=== PATIENT | female | born 1940 | race Caucasian/White ===

== ENCOUNTER 2017-12-28 09:33 | Outpatient (CLI) | payer MEDICARE, OTHER | END 2017-12-28 09:34 | disposition home or self-care (01) | LOC: BICMAMMO 09:33 | PROVIDERS: ATTEND Internal Medicine Hematology & Oncology | DX: C50.412 Malignant neoplasm of upper-outer quadrant of left female breast (principal); D50.9 Iron deficiency anemia, unspecified; N18.2 Chronic kidney disease, stage 2 (mild); N64.89 Other specified disorders of breast | CPT/HCPCS: 19100; 76642; 76942; 77065; 88305; 88341; 88342; G0279; 88361; 88377 ==

== ENCOUNTER 2018-01-23 11:46 | Outpatient (CLI) | payer MEDICARE, OTHER ==
[2018-01-23 13:23] LABS: #Eosinphils 0.1 thou/uL (0.0-0.7); #Lymphocytes 1.6 thou/uL (1.20-3.40); #Monocytes 0.5 thou/uL (0.11-0.59); #Neutrophils 3.9 thou/uL (1.40-6.50); %Basophils 0.2 % (0.0-1.0); %Eosinophils 1.2 % (0.0-10.0); %Lymphocytes 26.8 % (21.0-51.0); %Neutrophils 63.9 % (42.0-75.0); Hemoglobin 13.4 g/dL (12.0-16.0); Mean Corpuscular HGB CONC 34.3 g/dL (32.0-36.0); Mean Corpuscular Hemoglobin 31.2 pg (27.0-31.0); Mean Corpuscular Volume 90.9 fL (78.0-98.0); Mean Platelet Volume 6.6 fL (7.4-10.4); Platelet Count 196 thou/uL (130-400); RBC Distribution Width 14.4 % (11.5-14.5); Red Blood Cell (RBC) Count 4.28 mill/uL (4.20-5.40)
[2018-01-23 13:38] LABS: Anion Gap 11 mmol/L (10-20); BUN (Urea Nitrogen) 13 mg/dL (9.8-20.1); Calc. Creatinine Clearance 0 mL/min (70-130); Calcium 9.5 mg/dL (7.8-10.44); Carbon Dioxide 27 mmol/L (23-31); Chloride 103 mmol/L (98-107); Estimated GFR-MDRD 69; Glucose 100 mg/dL (83-110); Potassium 3.9 mmol/L (3.5-5.1); Sodium 137 mmol/L (136-145)
--- NOTE | 2018-01-24 15:22 | EKG ---
Test Reason : Blood Pressure : / mmHG Vent. Rate : 064 BPM Atrial Rate : 064 BPM P-R Int : 220 ms QRS Dur : 076 ms QT Int : 398 ms P-R-T Axes : 063 -29 012 degrees QTc Int : 410 ms Sinus rhythm with 1st degree A-V block Low voltage QRS Cannot rule out Septal infarct , age undetermined Abnormal ECG Confirmed by ROLANDO CHARLES ([id number]) on 01/24/2018 3:21:56 PM Referred By: REJI Confirmed By:ROLANDO CHARLES
== END 2018-01-23 11:47 | disposition home or self-care (01) ==
LOC: LABBT 11:46
PROVIDERS: ATTEND Surgery
DX: Z01.818 Encounter for other preprocedural examination (principal); C50.912 Malignant neoplasm of unspecified site of left female breast
CPT/HCPCS: 80048; 82728; 85025; 93005; 93010

== ENCOUNTER 2018-01-30 08:59 | Observation (INO) | payer MEDICARE, OTHER ==
[2018-01-23 12:26] VITALS: BMI 29.3
--- NOTE | 2018-01-30 11:08 | NM ---
LYMPHOSCINTIGRAPHY: INDICATIONS: Malignant neoplasm, left breast. Preoperative lymphoscintigraphy performed to assess sentinel lymph nodes. TECHNIQUE: Technetium sulfur colloid 0.1 millicuries was injected subcutaneously in the periareolar region, at t he 12, 3, 6, and 9 o'clock positions. Imaging obtained at approximately 15 minutes. FINDINGS: The images shows a lymph node visualized in the upper left breast, at the 12 to 1 position, on the AP view. POS: [facility]
[2018-01-30] MEDS ORDERED: Fentanyl 100 MCG/2 ML VIAL ONE ×2 (12:24→14:48)
[2018-01-30] MEDS ORDERED: CEFAZOLIN/Water 2 GM/20 ML SYRINGE ONE (12:26)
[2018-01-30] MEDS ORDERED: Ketorolac Tromethamine 30 MG/ML VIAL ONE (12:47)
[2018-01-30] MEDS ORDERED: PROPOFOL 200 MG/20 ML VIAL ONE (12:47)
[2018-01-30] MEDS ORDERED: Dexamethasone 20 MG/5 ML VIAL ONE (12:47)
[2018-01-30] MEDS ORDERED: Ondansetron HCl/PF 4 MG/2 ML Vial ONE (12:47)
[2018-01-30] MEDS ORDERED: Lidocaine 1% PF 5 ML VIAL ONE (12:47)
[2018-01-30] MEDS ORDERED: Promethazine HCl 25 MG/ML VIAL SLOW IVP PRN (14:28)
[2018-01-30] MEDS ORDERED: Promethazine HCl 25 MG/ML VIAL IM PRN ×2 (14:28→14:42)
[2018-01-30] MEDS ORDERED: Ondansetron HCl/PF 4 MG/2 ML Vial IVP PRN ×2 (14:28→14:42)
[2018-01-30] MEDS ORDERED: Lactated Ringer's 1,000 ML IV SCH (14:42)
[2018-01-30] MEDS ORDERED: Dextrose 5% in Water 1,000 ML IV PRN (14:42)
[2018-01-30] MEDS ORDERED: hydrALAZINE 20 MG/ML VIAL SLOW IVP PRN (14:42)
[2018-01-30] MEDS ORDERED: Dextrose 50% Abboject 50 ML SYRINGE SLOW IVP PRN (14:42)
[2018-01-30] MEDS ORDERED: traMADol HCl 50 MG TAB PO PRN ×2 (14:42)
[2018-01-30] MEDS ORDERED: HYDROcodone/Acetaminophen 7.5/325 mg Tablet PO PRN ×2 (14:42)
[2018-01-30] MEDS ORDERED: Morphine 4 MG/ML Carpuject SLOW IVP PRN (14:42)
[2018-01-30] MEDS ORDERED: Promethazine HCl 25 MG/ML VIAL ONE (14:50)
[2018-01-30] MEDS: Docusate 100 MG CAP PO SCH (20:27)
[2018-01-30] MEDS: Famotidine 20 MG TAB PO SCH (20:27)
[2018-01-31] MEDS: Famotidine 20 MG TAB PO SCH (10:02)
[2018-01-31] MEDS: Docusate 100 MG CAP PO SCH (10:03)
[2018-01-31 12:04] VITALS: BP 154/84; TEMP 97.9
--- NOTE | 2018-01-31 21:43 | OP ---
DATE: 01/30/2018 PREOPERATIVE DIAGNOSIS: Left breast cancer. POSTOPERATIVE DIAGNOSIS: Left breast cancer. PROCEDURES: 1. Left deep axillary node biopsy (sentinel node protocol). 2. Left simple mastectomy. SURGEON: Quinton Cabrera M.D. ANESTHESIA: General. ESTIMATED BLOOD LOSS: Minimal. COMPLICATIONS: None. SPECIMEN: Left breast mass marked with two short superior, one long lateral and sent to de[facility]ah for tyrese bower diagnosis. There were sentinel nodes, multiple sent to path for final diagnosis. There was incre ased uptake and 2 lymph nodes. INDICATION: The patient is a 77-year-old female who presents with likely early left breast cancer. Her size of her tumor was approaching 2 cm. She had no interest in postop radiation. Decision was m satinder to proceed with mastectomy. She had already had a right mastectomy for a previous breast cancer remotely. Risks, benefits, alternatives were discussed. She gave consent. TECHNIQUE: The patient underwent preoperative lymphoscintigraphy on the morning of surgery, taken to the operating room and laid supine on the operating room table. After general anesthetic was obtain ed, 5 mL of methylene blue dye infiltrated under the left nipple and massaged for 5 minutes. Left ch est, arm, axilla were all prepped and draped in a sterile fashion. Incision was made on the inferior hairline of the left axilla. The Neoprobe was used to find the area of increased uptake. Two areas of increased uptake were found, both removed and sent for permanent pathology. This wound was irrig ated and closed using 3-0 Vicryl, 4-0 Monocryl, and Dermabond. Next, an incision was made to ellipse out the nipple areolar complex. Flaps were raised superior to the clavicle, medially to the sternum , laterally to latissimus dorsi muscle, inferior to the inframammary fold. The breast was taken off the chest wall. The pectoral fascia was taken off with the breast and included with the specimen. T he specimen was marked with two short superior, one long lateral and sent to path for final diagnosis . The meticulous hemostasis was obtained in the mastectomy wound. Two-round 19 drains were brought out and sewn in place using silk suture. The wound was irrigated and closed using 3-0 Vicryl in the subcutaneous tissues, running 4-0 Monocryl and Dermabond on the skin. The patient was en route to re covery in stable condition. All instrument counts, needle counts, lap counts were correct.
== END 2018-01-31 15:00 | disposition home or self-care (01) ==
LOC: SDC 08:59 → ONC 16:39
PROVIDERS: ADMIT Surgery; ATTEND Surgery
PROC: 0HTU0ZZ Resection of Left Breast, Open Approach (ICD-10-PCS; principal; 2018-01-30)
PROC: 07B60ZX Excision of Left Axillary Lymphatic, Open Approach, Diagnostic (ICD-10-PCS; 2018-01-30)
DX: C50.412 Malignant neoplasm of upper-outer quadrant of left female breast (principal); C77.3 Secondary and unspecified malignant neoplasm of axilla and upper limb lymph nodes; E03.9 Hypothyroidism, unspecified; Z79.899 Other long term (current) drug therapy; Z88.5 Allergy status to narcotic agent; Z17.0 Estrogen receptor positive status [ER+]
CPT/HCPCS: 19303; 38525; 78195; 88307; 96374; 96375; A9541; G0378; Q9968; J1100; J1885; J2001; J2405; J2550; J2704; J3010

== ENCOUNTER 2018-02-08 13:02 | Outpatient (CLI) | payer MEDICARE, OTHER ==
--- NOTE | 2018-02-08 14:12 | PET ---
PET WITH CT SKULL TO MID THIGH: CLINICAL HISTORY: Recently diagnosed left breast malignancy with a history of positive lymph node involvement. RADIOPHARMACEUTICAL: Florene-18 FDG 10.2 millicuries IV. FINDINGS: There is appropriate biodistribution of radiotracer activity. There is increased metabolic activity of the postoperative anterior left chest wall, as well as withi n the left axillary lymph nodes, at the site of the recent surgical procedure. An indwelling drainag e catheter is also present within this region. Aside from the operative site of the anterior left ch est wall and left axilla, there are no additional sites of increased metabolic activity to indicate m etastases. There is incidental note of a hypodensity of the left thyroid lobe. A cyst is seen withi n the inferior aspect of the right hepatic lobe. There is a moderate to large sized hiatal hernia. Granulomatous calcifications are seen, incidentally. Scattered vascular disease is noted. No osseou s metastases are evident. IMPRESSION: 1. Increased metabolic activity at the anterior left chest wall and left axilla, related to the cas ent's recent left breast surgery and left axillary jefry dissection. Given metabolic activity overly ing the operative site of the left axillary lymph nodes, imaging followup may prove useful upon resol ution of inflammation related to recent surgery for continued assessment, as this may reflect a combi nation of metabolic activity related to post-surgical change and neoplastic activity. 2. Otherwise, no scintigraphic evidence to indicate distant metastatic disease. 2. Incidental left thyroid nodule. Recommend dedicated thyroid ultrasound as followup. A telephone call of the findings was placed to the patient's physician, Kaykay Ro M.D., at 1310 h ours, on 02/08/2018. CODE CR POS: [id number]
== END 2018-02-08 13:03 | disposition home or self-care (01) ==
LOC: PET 13:02
PROVIDERS: ATTEND Internal Medicine Hematology & Oncology
DX: C50.112 Malignant neoplasm of central portion of left female breast (principal); Z98.890 Other specified postprocedural states
CPT/HCPCS: 78815; A9552

== ENCOUNTER → 2018-03-20 | Day surgery (SDC) | payer MEDICARE, OTHER ==
[2018-03-16 15:10] VITALS: BMI 30.5
[~2018-03-20] MED LIST: Bupivacaine/Epinephrine 0.25% 30 ML VIAL ONE; CEFAZOLIN/Water 2 GM/20 ML SYRINGE ONE; Dexamethasone 20 MG/5 ML VIAL ONE; Famotidine/PF 20 mg/2ml Vial ONE; Fentanyl 100 MCG/2 ML VIAL ONE; Lidocaine 1% PF 5 ML VIAL ONE; Lidocaine 2% 10 ML INJ ONE; Midazolam HCl 2 mg/2 ml Vial ONE; Ondansetron HCl/PF 4 MG/2 ML Vial ONE; PROPOFOL 200 MG/20 ML VIAL ONE; PROPOFOL 40 ML ONE
--- NOTE | 2018-03-20 11:08 | RAD ---
SINGLE VIEW CHEST: HISTORY: Mediport insertion. Left breast cancer. COMPARISON: None. FINDINGS: A single view of the chest shows a normal sized cardiomediastinal silhouette. There is a right IJ Me diport with its tip in the superior vena cava. No pneumothorax is seen. There is no evidence of con solidation, mass, or pleural effusion. IMPRESSION: Status post Mediport placement without evidence of complication. POS: [facility]
--- NOTE | 2018-03-20 12:22 | OP ---
DATE OF PROCEDURE: 03/20/2018 PREOPERATIVE DIAGNOSIS: Left breast cancer. POSTOPERATIVE DIAGNOSIS: Left breast cancer. PROCEDURE: Tunneled central line subcutaneous port (MediPort, CT injectable). SURGEON: Quinton Cabrera M.D. ANESTHESIA: TIVA, local. ESTIMATED BLOOD LOSS: Possible. COMPLICATIONS: None. FINDINGS: Tip of the catheter at atriocaval junction. TECHNIQUE: The patient was taken to the operating room and placed supine on the table. After genera l sedation was obtained, bilateral neck and chest were prepped and draped in a sterile fashion. Loca l anesthetic infiltrated into the right internal jugular vein. Internal jugular vein cannulated usin g a 22-gauge finder needle followed by a Seldinger needle. Wire was passed under fluoroscopy guidanc e into the superior vena cava. A small sunshine was made at the wire entrance site. A separate 3-cm inc ision was made in the right upper chest. Subcutaneous pocket made below the lower incision. Tubing for the MediPort tunneled from the inferior to superior incision. Introducer sheath was placed over the wire into superior vena cava under fluoroscopy guidance. The dilator and wire removed and end of the catheter sewed into the sheath as the sheath is peeled away. The tip of the catheter is at the atriocaval junction. MediPort tubing cut to fit the MediPort at the lower incision, connected to the MediPort which was sewn to the chest wall in the subcutaneous pocket using Prolene. MediPort flushe s and draws blood without difficulties, flushed with a heparin flush. The wounds were irrigated and closed using 4-0 Monocryl and Dermabond. The patient is sent to recovery in stable condition. All s ponge counts, needle counts, lap counts are correct.
== END ==
LOC: SDC 06:49
PROVIDERS: ATTEND Surgery
PROC: 05HM33Z Insertion of Infusion Device into Right Internal Jugular Vein, Percutaneous Approach (ICD-10-PCS; principal; 2018-03-20)
DX: C50.912 Malignant neoplasm of unspecified site of left female breast (principal); E03.9 Hypothyroidism, unspecified; Z88.5 Allergy status to narcotic agent; Z79.899 Other long term (current) drug therapy
CPT/HCPCS: 36561; 71045; C1788; J1642; J2250; J2704; J3010; S0028

== ENCOUNTER 2018-06-05 12:28 | Outpatient (CLI) | payer MEDICARE, OTHER ==
[~2018-06-05 12:28] MED LIST changes: -Bupivacaine/Epinephrine 0.25% 30 ML VIAL ONE; -CEFAZOLIN/Water 2 GM/20 ML SYRINGE ONE; -Dexamethasone 20 MG/5 ML VIAL ONE; -Famotidine/PF 20 mg/2ml Vial ONE; -Fentanyl 100 MCG/2 ML VIAL ONE; +Iopamidol 370 76% 100 ML VIAL ONE; -Lidocaine 1% PF 5 ML VIAL ONE; -Lidocaine 2% 10 ML INJ ONE; -Midazolam HCl 2 mg/2 ml Vial ONE; -Ondansetron HCl/PF 4 MG/2 ML Vial ONE; -PROPOFOL 200 MG/20 ML VIAL ONE; -PROPOFOL 40 ML ONE
--- NOTE | 2018-06-05 13:58 | CT ---
CTA CHEST WITH 3D VOLUME RENDERING: INDICATION: History of breast cancer with new-onset short of breath. Prior mastectomy. FINDINGS: There is no evidence of a significant filling defect of the pulmonary arteries to indicate acute pulm onary embolus. There are scattered nonspecific patchy ground-glass and interstitial opacities at eac h lung. Linear parenchymal densities are seen bilaterally which may relate to a scar. There is a mo derate to large hiatal hernia. No effusion or pneumothorax. An indwelling right chest port is parti ally visualized. At the imaged upper abdomen, no discrete evidence for an acute process. IMPRESSION: No acute pulmonary embolus. POS: [facility]
== END 2018-06-05 12:29 | disposition home or self-care (01) ==
LOC: CT 12:28
PROVIDERS: ATTEND Nurse Practitioner Acute Care
DX: R06.00 Dyspnea, unspecified (principal); I26.99 Other pulmonary embolism without acute cor pulmonale
CPT/HCPCS: 71275

== ENCOUNTER 2018-11-13 14:34 | Outpatient (CLI) | payer MEDICARE, OTHER ==
--- NOTE | 2018-12-12 14:54 | BD ---
DEXA BONE DENSITY EXAM: HISTORY: A 78-year-old postmenopausal female for screening. COMPARISON: 01/28/2016. FINDINGS: Lumbar Spine: BMD (g/cm2) L1 0.895 T-Score: 0.0 L2 1.042 T-Score: 0.1 L3 1.102 T-Score: 0.2 L4 1.140 T-Score: 0.7 L1-L4 1.077 T-Score: 0.6 Femoral Neck: 0.620 T-Score: -2.1 Total Femur: 0.849 T-Score: -0.8 Impression: Osteopenia. This patient has a 10-year WHO fracture risk of a major osteoporotic fracture of 19% and of a hip fracture of 6%. When compared to the prior examination, the bone density in the spine and hip have not changed significantly. POS: [facility]
== END 2018-11-13 14:35 | disposition home or self-care (01) ==
LOC: BICMAMMO 14:34
PROVIDERS: ATTEND Internal Medicine Hematology & Oncology
DX: Z13.820 Encounter for screening for osteoporosis (principal); C50.112 Malignant neoplasm of central portion of left female breast; T38.6X5A Adverse effect of antigonadotrophins, antiestrogens, antiandrogens, not elsewhere classified, initial encounter; M85.859 Other specified disorders of bone density and structure, unspecified thigh
CPT/HCPCS: 77080

== ENCOUNTER 2019-01-31 10:12 | Outpatient (CLI) | payer MEDICARE, OTHER ==
--- NOTE | 2019-01-31 11:02 | CT ---
CT ABDOMEN PELVIS WITH ORAL AND IV CONTRAST: HISTORY: Possible carcinoid nodule seen in distal terminal ileum on recent colonoscopy. Patient has a history of breast cancer. Correlation: PET/CT of 09/11/2017 FINDINGS: A moderate-sized hiatal hernia is present. There are calcified granulomas in the liver. Low-density l esions in the liver are again seen as on the PET/CT. The largest of these is in the inferior tip of the right lobe of the liver, measures 3 cm and is consistent with a simple cyst. A tiny low-density lesion is seen in the periphery of the spleen. The pancreas, adrenal glands and ki dneys are normal. No calcified gallstones are seen. No free air, free fluid or lymphadenopathy is noted in the abdomen or pelvis. There are vascular calc ifications without evidence of aneurysmal dilatation of the abdominal aorta. There are degenerative changes in the spine. The small bowel loops are not abnormally dilated. No wall thickening of the terminal ileum is seen. A normal-appearing appendix is present. The patient is post hysterectomy. IMPRESSION: 1. Hiatal hernia 2. Hepatic cysts 3. Evaluation for probable carcinoid tumor with indium-111 Octreoscan would be helpful.
== END 2019-01-31 10:13 | disposition home or self-care (01) ==
LOC: BICCT 10:12
PROVIDERS: ATTEND Internal Medicine Gastroenterology
DX: D49.0 Neoplasm of unspecified behavior of digestive system (principal); K44.9 Diaphragmatic hernia without obstruction or gangrene; K76.89 Other specified diseases of liver
CPT/HCPCS: 74177; 83497

== ENCOUNTER 2019-02-05 12:02 | Outpatient (CLI) | payer MEDICARE, OTHER ==
--- NOTE | 2019-02-06 17:22 | NM ---
INDIUM 111 OCTREO SCAN: 02/06/19 HISTORY: Neoplasm unspecified behavior of digestive system. RADIOPHARMACEUTICAL: 5.8 millicuries Indium 111 Octreotide injected intravenously followed by whole body planar imaging an d SPECT CT imaging of the abdomen and pelvis 24 hours post injection. CORRELATION: CT abdomen and pelvis of 01/31/19. FINDINGS: There is physiologic uptake in the liver, spleen, kidneys and GI tract. There is a focus of increased uptake in the left lobe of the thyroid gland corresponding to the nodul e seen in the CT pulmonary angiogram of 06/05/18. No other abnormal areas of tracer localization is s een. IMPRESSION: Focal increased uptake in the left lobe of the thyroid gland, otherwise unremarkable exam. Further ev aluation with ultrasound guided biopsy is recommended. POS: [facility]
== END 2019-02-05 12:03 | disposition home or self-care (01) ==
LOC: NM 12:02
PROVIDERS: ATTEND Internal Medicine Gastroenterology
DX: C17.9 Malignant neoplasm of small intestine, unspecified (principal)
CPT/HCPCS: 78802; 78803; A4641; A9572

== ENCOUNTER 2019-03-04 08:24 | Outpatient (CLI) | payer MEDICARE, OTHER ==
[2019-03-04 08:54] LABS: Estimated GFR-MDRD - POC Greater than 90
[2019-03-04] MEDS ORDERED: ISOVUE-370 76%-LOCM 1 ML ONE (10:32)
--- NOTE | 2019-03-04 12:12 | CT ---
CHEST CT SCAN WITH IV CONTRAST: Date: 03/04/19 HISTORY: History of breast cancer. Finished chemotherapy. Bilateral mastectomy. COMPARISON: 06/05/18 CT angio chest. FINDINGS: Stable 2.0 x 2.8 cm diameter nodule in the left lower lobe of the thyroid. Minimal bilateral scattere d linear and parenchymal changes, probably chronic. There is a new, somewhat triangular shaped focus of subpleural parenchymal density in the left upper lobe, nonspecific, possibly representing a small focus of subsegmental atelectasis or possibly mild pneumonitis. Consider follow-up at 3 months. Moder ate size hiatal hernia, stable. Stable low density foci within the liver. No evidence for significant axillary adenopathy. No supraclavicular adenopathy. No pleural effusion. IMPRESSION: 1. New, poorly circumscribed, somewhat triangular-shaped focus of parenchymal density in the left up per lobe, nonspecific. 3 month follow-up exam should be considered. 2. Stable left lobe of thyroid nodule. 3. Small, stable liver cysts. 4. No evidence for metastasis. POS: [facility]
== END 2019-03-04 08:25 | disposition home or self-care (01) ==
LOC: BICCT 08:24
PROVIDERS: ATTEND Internal Medicine Hematology & Oncology
DX: Z08 Encounter for follow-up examination after completed treatment for malignant neoplasm (principal); T38.6X5A Adverse effect of antigonadotrophins, antiestrogens, antiandrogens, not elsewhere classified, initial encounter; K76.89 Other specified diseases of liver; Z85.3 Personal history of malignant neoplasm of breast
CPT/HCPCS: 71260; 82565; Q9966

== ENCOUNTER 2019-06-25 07:59 | Outpatient (CLI) | payer MEDICARE, OTHER ==
--- NOTE | 2019-06-25 10:32 | CT ---
CT CHEST WITH IV CONTRAST: HISTORY: A 79-year-old female with a personal history of a malignant neoplasm of the breasts. Iron deficiency anemia, unspecified. Malignant neoplasm of the central portion of the left female breast. Adverse eff ect of antigonadotropins, antiestrogens, antiandrogens, not elsewhere classified. COMPARISON: 03/04/2019 FINDINGS: No evidence of mediastinal, hilar or axillary mass or lymphadenopathy seen. The 2 x 3 cm left thyroid nodule is again noted. No pleural or pericardial effusions are seen. There is a peripheral infiltrate in the left upper lobe, new since the last exam. No lung masses or n odules are seen. The moderate sized hiatal hernia is stable. Small low density lesions in the liver are again seen. Th ere is a 14 mm hypodense lesion in the posterior aspect of the body of the pancreas. Degenerative changes in the spine are again seen. IMPRESSION: 1. New peripheral infiltrate in the left upper lobe is mostly likely due to radiation pneumonitis or infection, less likely malignancy/metastatic disease. 2. Pancreatic lesion should be evaluated with endoscopic ultrasound. POS: [facility]
[2019-06-25] MEDS ORDERED: Iopamidol-370 76% 500 ML 1 ML ONE (10:49)
== END 2019-06-25 08:00 | disposition home or self-care (01) ==
LOC: BICCT 07:59
PROVIDERS: ATTEND Internal Medicine Hematology & Oncology
DX: R93.7 Abnormal findings on diagnostic imaging of other parts of musculoskeletal system (principal); C50.112 Malignant neoplasm of central portion of left female breast; K86.9 Disease of pancreas, unspecified; R91.8 Other nonspecific abnormal finding of lung field
CPT/HCPCS: 36415; 71260; 82565; 82728; 84443; 85027; Q9967

== ENCOUNTER 2020-01-27 07:39 | Outpatient (CLI) | payer MEDICARE, OTHER ==
[2020-01-27] MEDS ORDERED: Iopamidol 370 76% 100 ML VIAL ONE (09:52)
--- NOTE | 2020-01-27 12:16 | CT ---
Exam: Chest CT with contrast Pelvic CT with contrast Abdomen CT with and without contrast HISTORY: Pancreatic cyst, constipation, gastritis. Breast cancer follow-up. History of a pancreatic l esion which was attempted to be biopsied at outside institution. Bilateral breast cancer x2 with chemotherapy and radiation therapy. COMPARISON: Chest CT 06/25/2019, 02/22/2019. Abdomen and pelvic CT 01/21/2019. FINDINGS: Chest CT: Lower neck and axilla: No masses or lymphadenopathy. There are surgical clips in the right axilla. Bi lateral mastectomy changes are noted. Thyroid gland: A large heterogeneous left thyroid lobe. Patient has undergone thyroid ultrasound on . Refer to that exam for further detail. Mediastinum: No mass, lymphadenopathy or hematoma. Heart: Normal heart size. No pericardial effusion. Pulmonary arteries: Adequate contrast opacification. No filling defect to suggest thromboembolism Aorta: Normal caliber. No periaortic fat stranding. Posterior mediastinum: Redemonstration of a large hiatal hernia. Trachea and central bronchi: Patent. Pleural effusion: None. Pneumothorax: None. Right lung: Dependent atelectatic changes. No suspicious masses or consolidation. Left lung: Redemonstration of pleural-based opacities involving the left upper lobe. The degree of pl eural-based opacities has slightly increased since February 2019 but has decreased since June 2019. Posttreatment changes favored. No suspicious masses, consolidation or nodules in the left lung. Abdomen CT: Noncontrast images demonstrate calcified granulomas in the liver. Redemonstration of a hypodensity in the posterior segment of the right hepatic lobe, measuring 3.5 x 2.6 cm compatible with a cyst. Additional smaller densities are noted in the right hepatic lobe. Lesions are too small to characteri ze but are unchanged from a prior abdomen CT. Stable metallic clip in the left hepatic lobe. Spleen: Appropriate enhancement. Adrenal glands: Appropriate enhancement. Pancreas: Redemonstration of a hypodense lesion in the proximal body of the pancreas measuring 0.9 x 0.5 cm. This lesion measured 1.0 x 1.3 cm in June 2019 and 0.8 x 1.1 cm in February 2019. Symmetric enhancement of the kidneys. Bilaterally no obstructive uropathy. Mesentery: No mass, lymphadenopathy, free air or free fluid. Anterior abdominal wall: No evidence of bowel herniation. Small umbilical hernia containing mesenteri c fat. Alimentary canal: No evidence of a small bowel obstruction. Normal caliber appendix. Contrast and fec al material in a nondistended, nondilated colon. No evidence of diverticulitis. Pelvic CT: No mass, lymphadenopathy, free air or free fluid. Urinary bladder has a normal mucosal appearance Presacral fat is preserved. Osseous: No lytic or blastic lesions in the osseous structures. Stable endplate changes and mild compression f ractures in the distal thoracic spine. IMPRESSION: 1. Stable post surgical changes compatible with bilateral mastectomy. 2. Left thyroid nodule, incompletely evaluated. Refer to recent ultrasound report for further detail. 3. Parenchymal changes along the peripheral aspect of the left upper lobe. The degree of opacificatio n has improved since June 2019. Posttreatment changes are favored in a patient who was undergoing chemotherapy and radiation therapy. Correlate with radiation sarmiento. 4. Essentially stable hypodensity in the mid body of the pancreas. 5. Stable hepatic hypodensities. Transcribed Date/Time: 01/27/2020 12:56 PM
== END 2020-01-27 07:40 | disposition home or self-care (01) ==
LOC: BICCT 07:39
PROVIDERS: ATTEND Internal Medicine Hematology & Oncology
DX: B96.81 Helicobacter pylori [H. pylori] as the cause of diseases classified elsewhere (principal); C50.919 Malignant neoplasm of unspecified site of unspecified female breast; K86.2 Cyst of pancreas; K59.09 Other constipation; R00.8 Other abnormalities of heart beat; R93.3 Abnormal findings on diagnostic imaging of other parts of digestive tract; R93.7 Abnormal findings on diagnostic imaging of other parts of musculoskeletal system; E04.1 Nontoxic single thyroid nodule; R93.2 Abnormal findings on diagnostic imaging of liver and biliary tract; Z90.13 Acquired absence of bilateral breasts and nipples
CPT/HCPCS: 71260; 74178; 82565; Q9967

== ENCOUNTER 2020-08-10 09:10 | Outpatient (CLI) | payer MEDICARE, OTHER ==
--- NOTE | 2020-08-10 09:56 | CT ---
CT OF THE CHEST WITH IV CONTRAST INDICATION: History of abnormality of the left upper lobe; history of breast cancer, developed cystec jermaine, chemotherapy and radiation therapy COMPARISON: CT of the chest abdomen and pelvis dated January 27, 2020 FINDINGS: CHEST: Lungs: The subpleural parenchymal scarring in the left upper lobe is stable. No suspicious pulmonary nodule, airspace consolidation or pleural effusion is evident. Pleural space: No effusion. Mediastinum: There is a large hiatal hernia. No pathologically enlarged lymph nodes are evident. The large heterogeneous nodule involving inferior pole of the thyroid gland is stable. Upper abdomen:There is diffuse fatty liver. There are scattered calcified granuloma. Subcentimeter hy podensities within the right hepatic lobe are similar. Very tiny hypodensity within the pancreatic body is stable. Osseous structures: Mild superior endplate compression abnormalities of T8, T11 and T12 are stable. P rominent bony hemangioma of T7 is stable. There is scattered degenerative and osteoarthritic changes. Soft tissues:Bilateral mastectomies IMPRESSION: 1. Stable parenchymal scarring of the left upper lobe likely related to prior radiation therapy. 2. Stable large hiatal hernia. 3. Stable prominent left thyroid nodule. 4. Stable superiorly compression abnormalities at T8, T11 and T12. 5. Stable pancreatic body and hepatic hypodensities.
[2020-08-10] MEDS ORDERED: Iopamidol-370 76% 500 ML 1 ML ONE (12:07)
== END 2020-08-10 09:11 | disposition home or self-care (01) ==
LOC: BICCT 09:10
PROVIDERS: ATTEND Internal Medicine Hematology & Oncology
DX: C50.112 Malignant neoplasm of central portion of left female breast (principal); R93.7 Abnormal findings on diagnostic imaging of other parts of musculoskeletal system; J98.4 Other disorders of lung; K44.9 Diaphragmatic hernia without obstruction or gangrene; E04.1 Nontoxic single thyroid nodule; K76.89 Other specified diseases of liver
CPT/HCPCS: 71260; 82565; Q9967

== ENCOUNTER 2021-02-18 14:25 | Outpatient (CLI) | payer MEDICARE, OTHER | END 2021-02-18 14:26 | disposition home or self-care (01) | LOC: BICMAMMO 14:25 | PROVIDERS: ATTEND Internal Medicine Hematology & Oncology | DX: M85.851 Other specified disorders of bone density and structure, right thigh (principal); T38.6X5A Adverse effect of antigonadotrophins, antiestrogens, antiandrogens, not elsewhere classified, initial encounter; D50.9 Iron deficiency anemia, unspecified; Z85.3 Personal history of malignant neoplasm of breast; M85.852 Other specified disorders of bone density and structure, left thigh | CPT/HCPCS: 77080 ==

== ENCOUNTER 2021-08-10 09:52 | Outpatient (CLI) | payer MEDICARE, OTHER | END 2021-08-10 09:53 | disposition home or self-care (01) | LOC: BICCT 09:52 | PROVIDERS: ATTEND Internal Medicine Hematology & Oncology | DX: C50.112 Malignant neoplasm of central portion of left female breast (principal); J98.4 Other disorders of lung; E04.1 Nontoxic single thyroid nodule; K44.9 Diaphragmatic hernia without obstruction or gangrene; K76.89 Other specified diseases of liver; K86.89 Other specified diseases of pancreas | CPT/HCPCS: 71260; 82565 ==

== ENCOUNTER 2021-12-16 09:09 | Outpatient (CLI) | payer MEDICARE, OTHER | END 2021-12-16 09:10 | disposition home or self-care (01) | LOC: NM 09:09 | PROVIDERS: ATTEND Internal Medicine Hematology & Oncology | DX: R93.7 Abnormal findings on diagnostic imaging of other parts of musculoskeletal system (principal) | CPT/HCPCS: 78306; A9503 ==

== ENCOUNTER 2021-12-17 11:46 | Outpatient (CLI) | payer MEDICARE, OTHER ==
[~2021-12-17 11:46] MED LIST changes: -Iopamidol 370 76% 100 ML VIAL ONE; +Magnevist 469MG/ML 20 ML VIAL ONE
== END 2021-12-17 11:47 | disposition home or self-care (01) ==
LOC: BICMRI 11:46
PROVIDERS: ATTEND Neurological Surgery
DX: G95.9 Disease of spinal cord, unspecified (principal); M51.24 Other intervertebral disc displacement, thoracic region; M48.02 Spinal stenosis, cervical region; M48.04 Spinal stenosis, thoracic region; M47.812 Spondylosis without myelopathy or radiculopathy, cervical region; M47.814 Spondylosis without myelopathy or radiculopathy, thoracic region; M51.36 Other intervertebral disc degeneration, lumbar region; M89.8X8 Other specified disorders of bone, other site; E04.1 Nontoxic single thyroid nodule; K44.9 Diaphragmatic hernia without obstruction or gangrene
CPT/HCPCS: 70553; 72156; 72157; 72158

== ENCOUNTER 2022-02-17 08:26 | Outpatient (CLI) | payer MEDICARE, OTHER ==
[2022-02-17] MEDS ORDERED: Iopamidol-370 76% 500 ML 1 ML ONE (11:21)
== END 2022-02-17 08:27 | disposition home or self-care (01) ==
LOC: BICCT 08:26
PROVIDERS: ATTEND Internal Medicine Hematology & Oncology
DX: K86.2 Cyst of pancreas (principal); J98.4 Other disorders of lung; C50.919 Malignant neoplasm of unspecified site of unspecified female breast; C79.51 Secondary malignant neoplasm of bone; K44.9 Diaphragmatic hernia without obstruction or gangrene; E04.1 Nontoxic single thyroid nodule; R93.3 Abnormal findings on diagnostic imaging of other parts of digestive tract; M89.8X8 Other specified disorders of bone, other site
CPT/HCPCS: 71260; 74177; 82565; Q9967

== ENCOUNTER 2022-02-24 12:26 | Outpatient (CLI) | payer MEDICARE, OTHER | END 2022-02-24 12:27 | disposition home or self-care (01) | LOC: SCSMRI 12:26 | PROVIDERS: ATTEND Internal Medicine Hematology & Oncology | DX: C50.112 Malignant neoplasm of central portion of left female breast (principal); C79.51 Secondary malignant neoplasm of bone | CPT/HCPCS: 72197 ==

== ENCOUNTER 2022-02-25 11:45 | Outpatient (CLI) | payer MEDICARE, OTHER | END 2022-02-25 11:46 | disposition home or self-care (01) | LOC: PET 11:45 | PROVIDERS: ATTEND Internal Medicine Hematology & Oncology | DX: C79.51 Secondary malignant neoplasm of bone (principal); C50.112 Malignant neoplasm of central portion of left female breast | CPT/HCPCS: 78815; A9552 ==

== ENCOUNTER 2022-04-22 11:37 | Outpatient (CLI) | payer MEDICARE, OTHER ==
[~2022-04-22 11:37] MED LIST changes: +Iopamidol 370 76% 100 ML VIAL ONE; -Magnevist 469MG/ML 20 ML VIAL ONE
== END 2022-04-22 11:38 | disposition home or self-care (01) ==
LOC: CT 11:37
PROVIDERS: ATTEND Internal Medicine Hematology & Oncology
DX: C50.112 Malignant neoplasm of central portion of left female breast (principal); E80.7 Disorder of bilirubin metabolism, unspecified; R94.5 Abnormal results of liver function studies; T38.6X5A Adverse effect of antigonadotrophins, antiestrogens, antiandrogens, not elsewhere classified, initial encounter; C79.51 Secondary malignant neoplasm of bone; J98.4 Other disorders of lung; J98.11 Atelectasis; J92.9 Pleural plaque without asbestos; I70.0 Atherosclerosis of aorta; K44.9 Diaphragmatic hernia without obstruction or gangrene; E04.1 Nontoxic single thyroid nodule; K76.89 Other specified diseases of liver; N28.9 Disorder of kidney and ureter, unspecified; I99.8 Other disorder of circulatory system; M85.80 Other specified disorders of bone density and structure, unspecified site; R93.3 Abnormal findings on diagnostic imaging of other parts of digestive tract; Z90.13 Acquired absence of bilateral breasts and nipples; Z90.710 Acquired absence of both cervix and uterus
CPT/HCPCS: 71260; 74177; Q9967

== ENCOUNTER 2022-07-18 20:25 | Inpatient (IN) | payer MEDICARE, OTHER ==
[~2022-07-18 20:25] MED LIST changes: -Iopamidol 370 76% 100 ML VIAL ONE; +Iopamidol-370 76% 500 ML 1 ML ONE
[2022-07-18 21:08] LABS: Hemoglobin 12.1 g/dL (12.0-16.0); Mean Corpuscular HGB CONC 34.1 g/dL (32.0-36.0); Mean Corpuscular Hemoglobin 34.3 pg (27.0-31.0); Mean Platelet Volume 8.4 fL (7.4-10.4); Platelet Count 92 10x3/uL (130-400); RBC Distribution Width 15.8 % (11.5-14.5); Red Blood Cell (RBC) Count 3.52 mill/uL (4.20-5.40); White Blood Cell (WBC) Count 5.4 10x3/uL (4.8-10.8)
[2022-07-18 21:24] LABS: ALT (SGPT) 27 U/L (8-55); AST (SGOT) 63 U/L (5-34); Albumin 3.9 g/dL (3.4-4.8); Alkaline Phosphatase 124 U/L (40-110); Anion Gap 19 mmol/L (10-20); BUN (Urea Nitrogen) 12 mg/dL (9.8-20.1); Bilirubin, Total 2.3 mg/dL (0.2-1.2); Calc. Creatinine Clearance 0 mL/min (70-130); Calcium 8.8 mg/dL (7.8-10.44); Carbon Dioxide 20 mmol/L (23-31); Chloride 95 mmol/L (98-107); Estimated GFR 52; Globulin 2.7 g/dL (2.4-3.5); Glucose 137 mg/dL (83-110); Potassium 2.9 mmol/L (3.5-5.1); Protein, Total 6.6 g/dL (5.8-8.1); Sodium 131 mmol/L (136-145)
[2022-07-18 21:37] LABS: #Monocytes 0.4 thou/uL (0.11-0.59); #Neutrophils 3.9 thou/uL (1.40-6.50); %Basophils 0.3 % (0.0-1.0); %Eosinophils 0.8 % (0.0-10.0); %Lymphocytes 17.8 % (21.0-51.0); %Monocytes 7.8 % (0.0-10.0); %Neutrophils 73.3 % (42.0-75.0); Platelet Morphology Comment Appears Decreased
[2022-07-19 00:42] VITALS: BMI 24.3
[2022-07-19] MEDS ORDERED: NS 0.9% w/ 40 MEQ KCL 1,000 ML IV SCH (01:15)
[2022-07-19] MEDS ORDERED: Acetaminophen 325 MG TAB PO PRN (02:39)
[2022-07-19] MEDS ORDERED: Ondansetron ODT 4 MG TAB PO PRN (02:39)
[2022-07-19] MEDS ORDERED: Acetaminophen 650 MG Suppository PR PRN (02:39)
[2022-07-19] MEDS ORDERED: Non-Formulary Item 1 EACH (Oxycodone Hcl/Acetaminophen [Oxycodone-Acetaminophen 10-325] 1 PO PRN (02:42)
[2022-07-19] MEDS ORDERED: Electrolyte Replacement Protocol 1 EACH FS SCH (02:45)
[2022-07-19] MEDS ORDERED: Morphine 4 MG/ML VIAL SLOW IVP PRN (02:45)
[2022-07-19] MEDS ORDERED: Ondansetron PF 4 MG/2 ML Vial ONE (03:02)
[2022-07-19] MEDS ORDERED: Morphine 4 MG/ML VIAL ONE (03:02)
[2022-07-19] MEDS: Ondansetron PF 4 MG/2 ML Vial IVP PRN (03:11)
[2022-07-19 03:27] LABS: #Lymphocytes 0.6 thou/uL (1.20-3.40); #Monocytes 0.4 thou/uL (0.11-0.59); %Basophils 0.2 % (0.0-1.0); %Eosinophils 0.8 % (0.0-10.0); %Lymphocytes 11.7 % (21.0-51.0); %Monocytes 8.2 % (0.0-10.0); %Neutrophils 79.1 % (42.0-75.0); Hemoglobin 11.3 g/dL (12.0-16.0); Mean Corpuscular HGB CONC 34.4 g/dL (32.0-36.0); Mean Corpuscular Hemoglobin 34.3 pg (27.0-31.0); Mean Corpuscular Volume 99.8 fl (78.0-98.0); Mean Platelet Volume 8.7 fL (7.4-10.4); Platelet Count 84 10x3/uL (130-400); RBC Distribution Width 15.7 % (11.5-14.5); Red Blood Cell (RBC) Count 3.28 mill/uL (4.20-5.40); White Blood Cell (WBC) Count 5.1 10x3/uL (4.8-10.8)
[2022-07-19 03:28] LABS: Anion Gap 18 mmol/L (10-20); BUN (Urea Nitrogen) 10 mg/dL (9.8-20.1); Calc. Creatinine Clearance 58 mL/min (70-130); Calcium 8.5 mg/dL (7.8-10.44); Carbon Dioxide 19 mmol/L (23-31); Chloride 99 mmol/L (98-107); Estimated GFR 70; Glucose 115 mg/dL (83-110); Sodium 133 mmol/L (136-145)
[2022-07-19] MEDS: Lidocaine 5% Patch TD SCH (04:17)
[2022-07-19] MEDS: Sodium Chloride 0.9% 1,000 ML IV SCH ×2 (06:20→16:05)
[2022-07-19] MEDS ORDERED: Magnesium 2 GM/50 ML(in water) 2 GM in Premix Bag 1 BAG IVPB SCH (08:00)
[2022-07-19] MEDS: Apixaban 5 MG TAB PO SCH ×2 (09:30→19:55)
[2022-07-19] MEDS ORDERED: traMADol HCl 50 MG TAB ONE ×2 (10:09→14:56)
[2022-07-19] MEDS: traMADol HCl 50 MG TAB PO PRN ×2 (10:15→14:58)
[2022-07-19] MEDS ORDERED: Potassium Chloride 20 MEQ TAB PO SCH (13:30)
[2022-07-19] MEDS ORDERED: Magnesium 2 GM/50 ML BAG (IN WATER) ONE (14:49)
[2022-07-19] MEDS ORDERED: Potassium Chloride 20 MEQ TAB ONE (14:56)
[2022-07-19] MEDS: Transdermal Patch Removal TOP SCH (16:07)
[2022-07-19 16:54] LABS: Anion Gap 14 mmol/L (10-20); BUN (Urea Nitrogen) 8 mg/dL (9.8-20.1); Calc. Creatinine Clearance 67 mL/min (70-130); Calcium 8.4 mg/dL (7.8-10.44); Carbon Dioxide 21 mmol/L (23-31); Chloride 101 mmol/L (98-107); Estimated GFR 83; Glucose 98 mg/dL (83-110); Potassium 3.3 mmol/L (3.5-5.1); Sodium 133 mmol/L (136-145)
[2022-07-19] MEDS: Potassium Chloride 20 MEQ in Premix Bag 1 BAG IVPB SCH ×4 (17:36→19:55)
[2022-07-19] MEDS: Flecainide 50 MG TAB PO SCH (19:55)
[2022-07-20 04:34] LABS: ALT (SGPT) 18 U/L (8-55); AST (SGOT) 49 U/L (5-34); Albumin 3.4 g/dL (3.4-4.8); Alkaline Phosphatase 103 U/L (40-110); Anion Gap 13 mmol/L (10-20); BUN (Urea Nitrogen) 6 mg/dL (9.8-20.1); Calc. Creatinine Clearance 73 mL/min (70-130); Calcium 8.1 mg/dL (7.8-10.44); Carbon Dioxide 19 mmol/L (23-31); Chloride 102 mmol/L (98-107); Estimated GFR 88; Globulin 2.7 g/dL (2.4-3.5); Glucose 81 mg/dL (83-110); Potassium 3.4 mmol/L (3.5-5.1); Protein, Total 6.1 g/dL (5.8-8.1); Sodium 131 mmol/L (136-145)
[2022-07-20 04:43] LABS: #Lymphocytes 0.4 thou/uL (1.20-3.40); #Monocytes 0.3 thou/uL (0.11-0.59); #Neutrophils 2.7 thou/uL (1.40-6.50); %Basophils 0.2 % (0.0-1.0); %Eosinophils 0.5 % (0.0-10.0); %Lymphocytes 11.5 % (21.0-51.0); %Monocytes 9.1 % (0.0-10.0); %Neutrophils 78.7 % (42.0-75.0); Hemoglobin 10.5 g/dL (12.0-16.0); Mean Corpuscular HGB CONC 33.7 g/dL (32.0-36.0); Mean Corpuscular Hemoglobin 34.4 pg (27.0-31.0); Mean Platelet Volume 8.5 fL (7.4-10.4); Platelet Count 76 10x3/uL (130-400); RBC Distribution Width 15.7 % (11.5-14.5); Red Blood Cell (RBC) Count 3.05 mill/uL (4.20-5.40); White Blood Cell (WBC) Count 3.4 10x3/uL (4.8-10.8)
[2022-07-20 05:03] LABS: Bilirubin, Total 1.5 mg/dL (0.2-1.2)
[2022-07-20] MEDS ORDERED: Potassium Chloride 20 MEQ TAB PO SCH (08:00)
[2022-07-20] MEDS: Flecainide 50 MG TAB PO SCH ×2 (08:57→22:04)
[2022-07-20] MEDS: Levothyroxine Sodium 100 MCG TAB PO SCH (08:57)
[2022-07-20] MEDS: Apixaban 5 MG TAB PO SCH ×2 (08:57→21:41)
[2022-07-20] MEDS: Sertraline 100 MG TAB PO SCH (08:57)
[2022-07-20] MEDS: Lidocaine 5% Patch TD SCH (08:58)
[2022-07-20] MEDS ORDERED: FLU VACC QS2022-23(65YR UP)/PF 240 MCG/0.7 ML SYRINGE IM ONE (09:00)
[2022-07-20] MEDS ORDERED: Magnevist 469MG/ML 20 ML VIAL ONE (09:06)
[2022-07-20] MEDS: traMADol HCl 50 MG TAB PO PRN ×2 (12:15→21:40)
[2022-07-20] MEDS: Transdermal Patch Removal TOP SCH (17:42)
[2022-07-20] MEDS ORDERED: Transdermal Patch Removal TOP SCH (21:00)
[2022-07-20] MEDS: Ondansetron PF 4 MG/2 ML Vial IVP PRN (21:59)
[2022-07-21] MEDS: Levothyroxine Sodium 100 MCG TAB PO SCH (06:45)
[2022-07-21 07:38] VITALS: TEMP 97.3
[2022-07-21] MEDS: Apixaban 5 MG TAB PO SCH (08:32)
[2022-07-21] MEDS: Sertraline 100 MG TAB PO SCH (08:32)
[2022-07-21] MEDS: Flecainide 50 MG TAB PO SCH (08:32)
[2022-07-21] MEDS ORDERED: Lidocaine 5% Patch TD SCH (09:00)
[2022-07-21 11:10] VITALS: BP 149/105
== END 2022-07-21 18:42 | DRG 641 ==
LOC: ERS 20:25 → ERHOLD 23:56 → IMCU/EMU 07-19 16:13
PROVIDERS: ADMIT Student in an Organized Health Care Education/Training Program; ATTEND Internal Medicine
DX: E86.0 Dehydration (principal); C78.7 Secondary malignant neoplasm of liver and intrahepatic bile duct; C79.51 Secondary malignant neoplasm of bone; E87.6 Hypokalemia; I48.91 Unspecified atrial fibrillation; E03.9 Hypothyroidism, unspecified; Z96.651 Presence of right artificial knee joint; D69.6 Thrombocytopenia, unspecified; E78.00 Pure hypercholesterolemia, unspecified; C50.919 Malignant neoplasm of unspecified site of unspecified female breast; Z90.710 Acquired absence of both cervix and uterus; Z88.5 Allergy status to narcotic agent
CPT/HCPCS: 36415; 70553; 71275; 72157; 74177; 80053; 83735; 83880; 84484; 85025; 93005; 96374; A9579; J2270; J2405; J3475; J3480; J7050; Q9967; U0003; U0005